=== PATIENT | female | born 1975 | race Asian ===

== ENCOUNTER 2019-01-20 09:49 | Outpatient (CLI) | payer OTHER | END 2019-01-20 18:42 | disposition home or self-care (01) | LOC: SMA 09:49 | PROVIDERS: ATTEND Obstetrics & Gynecology | DX: Z12.31 Encounter for screening mammogram for malignant neoplasm of breast (principal) | CPT/HCPCS: 77067 ==

== ENCOUNTER → 2019-02-26 | Outpatient (CLI) | payer OTHER | END | disposition home or self-care (01) | LOC: SUS 10:00 | PROVIDERS: ATTEND Internal Medicine | DX: N64.89 Other specified disorders of breast (principal) | CPT/HCPCS: 76641 ==

== ENCOUNTER 2021-01-12 09:42 | Outpatient (CLI) | payer OTHER | END 2021-01-12 20:56 | disposition home or self-care (01) | LOC: SMA 09:42 | DX: Z12.31 Encounter for screening mammogram for malignant neoplasm of breast (principal) | CPT/HCPCS: 77067 ==

== ENCOUNTER 2022-03-01 10:03 | Outpatient (CLI) | payer OTHER | END 2022-03-01 19:13 | disposition home or self-care (01) | LOC: SMA 10:03 | PROVIDERS: ATTEND Internal Medicine | DX: Z12.31 Encounter for screening mammogram for malignant neoplasm of breast (principal) | CPT/HCPCS: 77067 ==

== ENCOUNTER 2022-10-10 11:30 | Outpatient (CLI) | payer OTHER | END 2022-10-10 19:27 | disposition home or self-care (01) | LOC: SMA 11:30 | PROVIDERS: ATTEND Internal Medicine | DX: Z12.31 Encounter for screening mammogram for malignant neoplasm of breast (principal) | CPT/HCPCS: 77067 ==

== ENCOUNTER 2023-10-23 14:43 | Outpatient (CLI) | payer OTHER | END 2023-10-23 20:50 | disposition home or self-care (01) | LOC: SMA 14:43 | PROVIDERS: ATTEND Internal Medicine | DX: Z12.31 Encounter for screening mammogram for malignant neoplasm of breast (principal) | CPT/HCPCS: 77067 ==

== ENCOUNTER 2024-01-22 10:35 | Outpatient (CLI) | payer OTHER | END 2024-01-22 18:58 | disposition home or self-care (01) | LOC: SUS 10:35 | DX: N60.01 Solitary cyst of right breast (principal); R92.30 Dense breasts, unspecified; N60.02 Solitary cyst of left breast | CPT/HCPCS: 76641 ==